=== PATIENT | female | born 1950 | race Caucasian/White ===

== ENCOUNTER 2023-12-15 05:05 | Observation (INO) ==
--- NOTE | 2023-11-10 11:35 | PAT Medication Instructions ---
Medication Instructions Date of Service November 10, 2023 Home Medications carvedilol 12.5 mg tablet 12.5 mg PO BID cholecalciferol (vitamin D3) 25 mcg (1,000 unit) capsule (Vitamin D3) 25 mcg PO QAM diclofenac sodium 1 % topical gel (Voltaren) 2 g topical BID PRN Pain fish oil-dha-epa 1,200 mg-144 mg-216 mg capsule 1 cap PO TID hydralazine 25 mg tablet 25 mg PO TID levothyroxine 100 mcg tablet 100 mcg PO QAM losartan 100 mg-hydrochlorothiazide 25 mg tablet 1 tab PO QAM acetaminophen 650 mg tablet,extended release 1,300 mg PO Q12H atorvastatin 80 mg tablet 80 mg PO HS calcium carbonate 600 mg calcium (1,500 mg) tablet 600 mg PO BID dexlansoprazole 60 mg capsule,biphase delayed release (Dexilant) 60 mg PO BID docusate sodium 100 mg capsule (Stool Softener) 100 mg PO BID linagliptin 5 mg tablet (Tradjenta) 5 mg PO QAM sucralfate 1 gram tablet (Carafate) 1 g PO TIDM turmeric root extract 500 mg capsule 500 mg PO QDL ASK your surgeon for instructions diclofenac sodium 1 % topical gel (Voltaren) 2 g topical BID PRN Pain STOP taking 2 weeks before surgery fish oil-dha-epa 1,200 mg-144 mg-216 mg capsule 1 cap PO TID turmeric root extract 500 mg capsule 500 mg PO QDL DO NOT take the morning of surgery cholecalciferol (vitamin D3) 25 mcg (1,000 unit) capsule (Vitamin D3) 25 mcg PO QAM losartan 100 mg-hydrochlorothiazide 25 mg tablet 1 tab PO QAM calcium carbonate 600 mg calcium (1,500 mg) tablet 600 mg PO BID docusate sodium 100 mg capsule (Stool Softener) 100 mg PO BID linagliptin 5 mg tablet (Tradjenta) 5 mg PO QAM sucralfate 1 gram tablet (Carafate) 1 g PO TIDM Take morning of surgery With a small sip of water, OTHERWISE NOTHING TO EAT OR DRINK AFTER MIDNIGHT: carvedilol 12.5 mg tablet 12.5 mg PO BID hydralazine 25 mg tablet 25 mg PO TID levothyroxine 100 mcg tablet 100 mcg PO QAM acetaminophen 650 mg tablet,extended release 1,300 mg PO Q12H (if needed) dexlansoprazole 60 mg capsule,biphase delayed release (Dexilant) 60 mg PO BID Take evening before surgery carvedilol 12.5 mg tablet 12.5 mg PO BID hydralazine 25 mg tablet 25 mg PO TID levothyroxine 100 mcg tablet 100 mcg PO QAM acetaminophen 650 mg tablet,extended release 1,300 mg PO Q12H atorvastatin 80 mg tablet 80 mg PO HS calcium carbonate 600 mg calcium (1,500 mg) tablet 600 mg PO BID dexlansoprazole 60 mg capsule,biphase delayed release (Dexilant) 60 mg PO BID docusate sodium 100 mg capsule (Stool Softener) 100 mg PO BID sucralfate 1 gram tablet (Carafate) 1 g PO TIDM Other Notes If you have any questions please call us at [phone] or [phone] or [phone] or [phone]
--- NOTE | 2023-11-15 11:29 | Anesthesiology Consultation ---
Date of Service November 15, 2023 Assessment & Plan (1) Encounter for pre-operative examination: - Check BSG AM DOS - Infectious disease screening: Per assessment on 11/15/23: No known infectious disease contacts or current infectious disease symptoms. No noted recent Covid positive test result. - Outpatient joint assessment: Pt currently scheduled for inpatient pathway. If surgeon requests review for outpatient joint pathway, patient is not recommended candidate for outpatient joint program from anesthesia standpoint. - Patient concerns: Patient concerned regarding perioperative management r/t hx of urinary incontinence/urgency, chronic constipation and anxiety. Questions/concerns answered. Advised to discuss further with anesthesiologist DOS if any additional questions/concerns* Chart Review Chart Review: Acceptable Risk for Surgery and Patient seen in Pre Admission Testing Teaching & Discussion Pre-Anesthesia Teaching/Discussion Notes: Instructed NPO after midnight before surgery,except medications with 15 cc of water. Medication instructions provided according to the PAT guidelines. History Surgery Operation Date: 12/15/23 09:15 Proposed Procedures p Left Total Knee Arthroplasty - Justin You DO Height/Weight Height: 5 ft 7 in Weight: 123.9 kg Allergies Allergy/AdvReac Type Severity Reaction Status Date / Time No Known Allergies Allergy Verified 11/08/23 09:37 Medications Home Medications Medication Instructions Recorded Confirmed Last Taken carvedilol 12.5 mg tablet 12.5 mg PO BID 09/12/20 11/08/23 09/26/20 06:30 cholecalciferol (vitamin D3) 25 25 mcg PO QAM 09/12/20 11/08/23 09/25/20 08:00 mcg (1,000 unit) capsule (Vitamin D3) diclofenac sodium 1 % topical gel 2 g topical BID PRN Pain 09/12/20 11/08/23 Unknown (Voltaren) fish oil-dha-epa 1,200 mg-144 1 cap PO TID 09/12/20 11/08/23 09/25/20 20:00 mg-216 mg capsule hydralazine 25 mg tablet 25 mg PO TID 09/12/20 11/08/23 09/26/20 06:30 levothyroxine 100 mcg tablet 100 mcg PO QAM 09/12/20 11/08/23 09/26/20 06:30 losartan 100 1 tab PO QAM 09/12/20 11/08/23 09/25/20 08:00 mg-hydrochlorothiazide 25 mg tablet acetaminophen 650 mg 1,300 mg PO Q12H 11/08/23 11/08/23 Unknown tablet,extended release atorvastatin 80 mg tablet 80 mg PO HS 11/08/23 11/08/23 Unknown calcium carbonate 600 mg calcium 600 mg PO BID 11/08/23 11/08/23 Unknown (1,500 mg) tablet dexlansoprazole 60 mg 60 mg PO BID 11/08/23 11/08/23 Unknown capsule,biphase delayed release (Dexilant) docusate sodium 100 mg capsule 100 mg PO BID 11/08/23 11/08/23 Unknown (Stool Softener) linagliptin 5 mg tablet (Tradjenta) 5 mg PO QAM 11/08/23 11/08/23 Unknown sucralfate 1 gram tablet (Carafate) 1 g PO TIDM 11/08/23 11/08/23 Unknown turmeric root extract 500 mg 500 mg PO QDL 11/08/23 11/08/23 Unknown capsule duloxetine 90 mg PO DAILY 11/15/23 11/15/23 Unknown hydroxyzine HCl 1 tab PO TID PRN Anxiety 11/15/23 11/15/23 Unknown metformin 500 mg tablet 500 mg PO BID 11/15/23 11/15/23 Unknown tramadol 1 tab PO DAILY PRN Pain 11/15/23 11/15/23 Unknown Past Medical History Medical History Urine incontinence Occasional urinary incontinence/severe urgency- wears depends at night History of COVID-Nov/Dec 2022- mild cold symptoms > resolved Diabetes mellitus, type 2 NIDDM Morbid obesity Hypertriglyceridemia Fatty liver Chronic back pain Lumbar Osteoarthritis Gout Hiatal hernia Barretts esophagus GERD (gastroesophageal reflux disease) Hypothyroidism Acquired lymphedema LLE Hypertension Exercise / Class Metabolic Activity III < 4 Walking/Shop/Light housework Past Family History Family History Other No family history of adverse response to anesthesia Past Surgical History Surgical History History of dilatation and curettage S/P arthroscopy of left shoulder S/P lumbar laminectomy 2020 ([facility]) H/O neck surgery "Benign mass" removal History of esophagogastroduodenoscopy (EGD) History of colonoscopy History of cholecystectomy Past Anesthesia History No Hx of Anesthesia Complications and No Family Hx of Anesthesia Complications History of PONV No Hx of PONV and No Hx of Motion Sickness Social History Smoking Status: Never smoker Do You Dip or Chew Tobacco: No Hx Alcohol Use: No Hx Substance Use: No Review of Systems Patient denies chest pain, shortness of breath, fever, chills, cough, wheezing, palpitations. Physical Exam Vital Signs VITALS BP 144/74 P 69 TEMP 98.2 SP02 95%RA RESP 16 PHYSICAL Full cervical extension range of motion. Full TMJ range of motion. TMD 3 finger breaths Mallampati Score 3 Dentition: missing teeth (sides) Lungs: clear throughout to auscultation Cardiac: regular rate and rhythm, no murmurs noted Spine: normal Carotid arteries: negative bruit Extremities: non-pitting LE edema Lab Results Anesthesia Preop Results Results Anesthesia Widget: WBC 8.33 K/ul (4.8-10.8) 11/15/23 Hgb 13.3 g/dl (12.0-16.0) 11/15/23 Hct 39.6 % (37.0-47.0) 11/15/23 Plt 221 K/uL (130-400) 11/15/23 Na 140 mmol/L (136-145) 11/15/23 K 4.5 mmol/L (3.5-5.1) 11/15/23 Cl 102 mmol/L (98-107) 11/15/23 CO2 30 mmol/L (21-32) 11/15/23 BUN 17 mg/dl (6-23) 11/15/23 Creat 0.56 mg/dl (0.6-1.2) L 11/15/23 Glucose Level 113 mg/dl (70-99(Fasting)) H 11/15/23 PT 10.9 Seconds (9.0-12.0) 11/15/23 PTT 28 Seconds (21-31) 11/15/23 INR 1.0 (0.9-1.1) 11/15/23 HA1c 6.9 % (4.5-5.6) H 11/15/23 Urine Color Yellow 11/15/23 Urine Appearance Clear (Clear) 11/15/23 Urine pH 7.5 (4.5-7.5) 11/15/23 Urine Specific [place] 1.022 (1.000-1.030) 11/15/23 Urine Protein Negative (Negative) 11/15/23 Urine Glucose (UA) Negative (Negative) 11/15/23 Urine Ketones Negative (Negative) 11/15/23 Urine Blood Negative (Negative) 11/15/23 Urine Nitrite Negative (Negative) 11/15/23 Urine Bilirubin Negative (Negative) 11/15/23 Urine Urobilinogen Negative (Negative) 11/15/23 Urine Leukocyte Esterase Trace (Negative) H 11/15/23 Urine WBC (Auto) 1-5 /hpf (0-5) 11/15/23 Urine RBC (Auto) 0-4 /hpf (0-4) 11/15/23 Urine Hyaline Casts (Auto) 1-5 /lpf (0-5) 11/15/23 Urine Epithelial Cells (Auto) >30 /lpf (0-5) H 11/15/23 Urine Bacteria (Auto) Negative (Negative) 11/15/23 Blood Type O Positive 11/15/23 Antibody Screen NEGATIVE 11/15/23 Testing Electrocardiogram Date: 11/15/23 NSR at 69bpm. "Normal ECG"
--- NOTE | 2023-11-18 08:35 | History & Physical Report ---
Date of Service November 18, 2023 date of surgery: 12/15/23 Procedure: Left Total Knee Arthroplasty Surgeon: Justin You, DO Assessment & Plan (1) Arthritis of knee, left: Plan: Risk and benefits of procedure discussed, she wishes to proceed with left total knee arthroplasty. Plan be overnight stay at the hospital with discharge home with home health physical therapy. Will place on aspirin 81 mg twice a day for 1 month postop DVT prophylaxis. Follow-up in the office 2 weeks after surgery or sooner if she is having any issues. Otherwise she has no other questions or concerns The risks and benefits have been discussed including, but not limited to, risk of infection, nerve injury, stiffness, loss of motion, failure to improve, etc. Reasonable outcomes and options of treatment were discussed. An explanation of appropriate alternatives to the procedure that may be advantageous were discussed and their risks and benefits, as well as the risks and benefits of not proceeding with treatment. I offered to answer any additional inquiries donato rning the treatment involved. All the patient's questions were answered. The patient is agreeable, understanding of the treatment plan and alternatives, and wishes to proceed with the treatment plan. History of Present Illness Chief Complaint: left knee pain Primary Care Provider: Horacio Lu Jeffrey Bello is a pleasant 73-year-old female who presented for preop evaluation prior to upcoming left total knee arthroplasty. She is longstanding history of left knee pain which gradually worsened and is now affecting her daily activities including walking standing using stairs. She rates her current pain as a 6 out of 10, she tried oral anti-inflammatories and Tylenol with no improvement. She is also previously undergone viscosupplementation as well as corticosteroid injection with no significant improvement. X-rays were reviewed which show advanced generative changes to her left knee, at discussing further care she wishes to proceed with surgical intervention Allergies Allergy/AdvReac Type Severity Reaction Status Date / Time No Known Allergies Allergy Verified 11/08/23 09:37 Home Medications Medication Instructions Recorded Confirmed Type carvedilol 12.5 mg tablet 12.5 mg PO BID 09/12/20 11/08/23 History cholecalciferol (vitamin D3) 25 25 mcg PO QAM 09/12/20 11/08/23 History mcg (1,000 unit) capsule (Vitamin D3) diclofenac sodium 1 % topical gel 2 g topical BID PRN Pain 09/12/20 11/08/23 History (Voltaren) fish oil-dha-epa 1,200 mg-144 1 cap PO TID 09/12/20 11/08/23 History mg-216 mg capsule hydralazine 25 mg tablet 25 mg PO TID 09/12/20 11/08/23 History levothyroxine 100 mcg tablet 100 mcg PO QAM 09/12/20 11/08/23 History losartan 100 1 tab PO QAM 09/12/20 11/08/23 History mg-hydrochlorothiazide 25 mg tablet acetaminophen 650 mg 1,300 mg PO Q12H 11/08/23 11/08/23 History tablet,extended release atorvastatin 80 mg tablet 80 mg PO HS 11/08/23 11/08/23 History calcium carbonate 600 mg calcium 600 mg PO BID 11/08/23 11/08/23 History (1,500 mg) tablet dexlansoprazole 60 mg 60 mg PO BID 11/08/23 11/08/23 History capsule,biphase delayed release (Dexilant) docusate sodium 100 mg capsule 100 mg PO BID 11/08/23 11/08/23 History (Stool Softener) linagliptin 5 mg tablet (Tradjenta) 5 mg PO QAM 11/08/23 11/08/23 History sucralfate 1 gram tablet (Carafate) 1 g PO TIDM 11/08/23 11/08/23 History turmeric root extract 500 mg 500 mg PO QDL 11/08/23 11/08/23 History capsule duloxetine 90 mg PO DAILY 11/15/23 11/15/23 History hydroxyzine HCl 1 tab PO TID PRN Anxiety 11/15/23 11/15/23 History metformin 500 mg tablet 500 mg PO BID 11/15/23 11/15/23 History tramadol 1 tab PO DAILY PRN Pain 11/15/23 11/15/23 History Past Med/Surg History Medical History Urine incontinence Occasional urinary incontinence/severe urgency- wears depends at night History of COVID-Nov/Dec 2022- mild cold symptoms > resolved Diabetes mellitus, type 2 NIDDM Morbid obesity Hypertriglyceridemia Fatty liver Chronic back pain Lumbar Osteoarthritis Gout Hiatal hernia Barretts esophagus GERD (gastroesophageal reflux disease) Hypothyroidism Acquired lymphedema LLE Hypertension Surgical History History of dilatation and curettage S/P arthroscopy of left shoulder S/P lumbar laminectomy 2020 ([facility]) H/O neck surgery "Benign mass" removal History of esophagogastroduodenoscopy (EGD) History of colonoscopy History of cholecystectomy Family History Other No family history of adverse response to anesthesia Social History Smoking Status: Never smoker Second Hand Exposure: No; Do You Dip or Chew Tobacco: No; Hx Alcohol Use: No Hx Substance Use: No Preferred Language: [place] Communication Ability: Effective Tool Mechanic Required: No Beliefs That Will Affect Care: None Current Living Situation: Spouse Feels Safe at Home: Yes Assistive Devices: Cane and Glasses Review of Systems Review of Systems: All systems reviewed & are unremarkable except as noted in HPI & below Constitutional: no fever, no chills and no sweats Respiratory: no cough and no dyspnea Cardiovascular: no chest pain, no dyspnea and no orthopnea Gastrointestinal: no abdominal pain, no nausea and no vomiting Musculoskeletal: as per Subjective / HPI Physical Exam Physical Exam: HT: 5ft 7in WT: 123.9kg Constitutional: WD/WN, vitals as above no acute distress Respiratory: normal respiratory effort, lungs clear to auscultation no respiratory distress, no labored breathing and does not use accessory muscles Cardiovascular: RRR, no murmur, no edema Gastrointestinal (Abdomen): normal bowel sounds, soft, nontender, no hepatosplenomegaly Musculoskeletal: Knee: + knee abnormal to inspection (LEFT KNEE), + effusion (+1 effusion), + limited ROM of knee (ROM 0/3/110), + knee ROM with crepitation, + joint line tenderness (medial joint line) and + Navdeep's sign positive; no deformity, no skin erythema, no ecchymosis, no valgus laxity, no varus laxity, anterior drawer test negative, Ana Luisa's sign negative and pivot shift test negative Results & Data Results & Data Diagnostic Findings Left Knee X-ray: left knee series confirm advanced degenerative changes to the left knee, greatest medial compartments and patellofemoral joint, showing joint space narrowing, osteophyte formation and subchondral sclerosis. no acute bony pathology noted.
[2023-12-15] MEDS ORDERED: TRANEXAMIC ACID 1,000 MG **IV Pre-op IV SCH (06:00)
[2023-12-15] MEDS ORDERED: ROPIV 0.5% 246mg, Ketorolac 30mg, EPINEPHrine 0.5mg in NSS INFIL SCH (06:00)
[2023-12-15] MEDS ORDERED: LR 60ML/HR IV SCH (06:00)
[2023-12-15] MEDS ORDERED: ACETAMINOPHEN 500 MG TAB PO SCH (06:00)
[2023-12-15] MEDS ORDERED: METOCLOPRAMIDE HCL 10 MG TABLET PO SCH (06:00)
[2023-12-15] MEDS ORDERED: GABAPENTIN 300 MG CAP PO SCH (06:00)
[2023-12-15] MEDS ORDERED: CeleBREX 200 MG CAP PO SCH (06:00)
[2023-12-15] MEDS ORDERED: FAMOTIDINE 20 MG TAB PO SCH (06:00)
[2023-12-15] MEDS ORDERED: TRANEXAMIC ACID 1,000 MG **IV Intra-op IV SCH (06:00)
[2023-12-15] MEDS ORDERED: dexAMETHasone**PF** 10 MG/ML VIAL IV SCH (06:00)
[2023-12-15] MEDS ORDERED: BUPIVACAINE 0.5 % 5 MG/1 ML PF 10ML VIAL ONE (06:16)
[2023-12-15] MEDS ORDERED: ROPIVACAINE 0.5% 5 MG/ML 30 ML VIAL ONE (06:16)
[2023-12-15] MEDS ORDERED: PROPOFOL IV EMULSION 10 MG/ML 20 ML VIAL IV ONE (06:35)
[2023-12-15] MEDS ORDERED: fentaNYL citrate PF 100 MCG/2 ML VIAL ONE ×2 (06:35→07:43)
[2023-12-15] MEDS ORDERED: LIDOCAINE 2% 2 ML VIAL/AMP(20MG/ML) INFIL ONE (06:35)
[2023-12-15] MEDS ORDERED: DEXAMETHASONE SOD INJ 4 MG/ML VIAL ONE (06:35)
[2023-12-15] MEDS ORDERED: MIDAZOLAM HCL 1 MG/ML 2ML VIAL ONE (06:35)
[2023-12-15] MEDS ORDERED: ONDANSETRON INJ 2 MG/ML 2 ML VIAL ONE (06:35)
[2023-12-15] MEDS ORDERED: ATROPINE SULFATE 0.1 MG/ML 10ML SYR IV PRN (06:42)
[2023-12-15] MEDS ORDERED: ONDANSETRON INJ 2 MG/ML 2 ML VIAL IV PRN ×2 (06:42→10:49)
[2023-12-15] MEDS ORDERED: ePHEDrine sulfate 50 MG/ML AMP IV PRN (06:42)
[2023-12-15] MEDS ORDERED: ORTHO JOINT ANESTHETIC ONE (07:05)
--- NOTE | 2023-12-15 07:15 | History & Physical Bridge Note ---
Date of Service December 15, 2023 History & Physical Bridge Note I have examined the patient, reviewed the History & Physical and in the interval since the performance of the History & Physical I have noted the following changes of clinical significance: no changes noted
--- NOTE | 2023-12-15 08:41 | Operative Report ---
Post Operative Report Pre & Post Diagnosis Operation Date: 12/15/23 07:15 Pre-Op Diagnosis: Left Knee Osteoarthritis Post-Op Diagnosis: Left Knee Osteoarthritis I identified the patient and participated in the time-out.: Yes Procedure Operation Date: 12/15/23 07:15 Actual Procedures p Left Total Knee Arthroplasty(Left)Utilizing [employer] journey 2 patient- matched total knee arthroplasty size femur 7 tibia 5 poly 11 patella 32 indio - Justin You DO Surgeon Justin You DO Mammography Tech Jose WATSON Estimated Blood Loss 5 Findings Consistent with Post-Op Diagnosis Patient presents with severe end-stage tricompartmental degenerative joint disease 10 degree flexion contracture varus alignment subchondral sclerosis marginal osteophytes subchondral eburnated [id number] with marginal with moderate to large effusion Specimens Bone and cartilage Drains Medium bore Hemovac Anesthesia Type MAC Spinal Regional Complications none Disposition Accompanied Patient To Recovery: No Disposition: Recovery Room Indications Patient presents with severe end-stage tricompartmental DJD flexion contracture with the above intraoperative note findings noted she is failed attempted corticosteroid injection viscosupplementation relative rest activity modification she presents for total knee arthroplasty Description of Procedure After proper prepping and draping of the left lower extremity anterior midline incision was made over the region of the extensor extensor mechanism after m eticulous hemostasis was obtained and maintained in subcutaneous tissues a medial parapatellar incision was made The patella was subluxed lateralward the medial lateral gutter were cleaned from any hypertrophic synovitis and scar tissue of the distal femoral block was placed and the distal femoral osteotomy cut was made subsequently the chamfers anterior and posterior osteotomy cuts were made utilizing the 4-in-1 block the tibia was subsequently subluxed anteriorward medial and ateral meniscal remnants were excised in their entirety remnants of the anterior and posterior cruciate ligaments were excised in their entirety excellent exposure of the proximal tibia was obtained the tibial osteotomy guide was placed on the proximal tibial osteotomy cut was made once again the knee was irrigated with copious amounts of sterile saline solution the patella was subsequently everted lateralward thickened scar tissue around the patella was removed the patella was subsequently cut utilizing a freehand technique and was drilled prepared for final preparation and placement of patella socially flexion-extension gaps were checked and the equal and symmetric trials were placed to the appropriate femoral and tibial trials with poly-spacer being placed for equal flexion and extension gaps and full range of motion including extension to 0 and flexion to 140 the trial components after having been taken to recovery range of motion was subsequently removed meticulous hemostasis was obtained and maintained subsequently a knee block injection of joint cocktail including ropivacaine 0.5% 150 mg. Bupivacaine 0.5% epinephrine 1-200,030 mL's toradol 30 mg dexamethasone 4 mg ketamine 10 mg clonidine 100 micrograms normal saline solution 30 mg was infiltrated into the soft tissues of the posterior knee medial lateral gutters and periosteal synovium special attention was paid to protect neurovascular structures at all times subsequently trial components having been removed the knee was irrigated with sterile saline solution. debris was removed the proximal tibia was subsequently prepared and was made ready for the placement of the tibial component tibial component was also cemented and tamped into position the femoral component was subsequently placed and cemented in the position the patellar component was subsequently cemented in position because hemostasis once again obtained and maintained wound having been thoroughly irrigated with debridement and debridement lavage was performed as well as a medial parapatellar incision closed with #1 Vicryl in interrupted fashion subcutaneous was closed with #2 Vicryl skin was closed with skin clips. PA-C was necessary for prepping and drapping as well as wound closure of deep fascia Sub cutaneous tissue and skin and was necessary for the case. A sterile compressive dressing was placed patient was taken to recovery in stable condition of report dictated by Avelino I attest to the content of the Intraoperative Record and any orders documented therein. Any exceptions are noted below.Due to the complex nature of the procedure, the entire surgery was performed with the operational assistance of WALTER Solo. The inventory assistant, under direct supervision, was involved in the actual performance of all aspects of the surgical procedure including hemostasis, tissue retraction and incision, instrument management, patient posi tioning, and wound closure. I attest to the content of the Intraoperative Record and any orders documented therein. Any exceptions are noted below.
--- NOTE | 2023-12-15 09:43 | XRay Report ---
XR knee LT 1 or 2V routine HISTORY: 73 years-old Female Surgical Post Op left knee arthroplasty COMPARISON: None TECHNIQUE: 2 views of the left knee FINDINGS: Total joint arthroplasty with patellar resurfacing. Expected postoperative soft tissue swelling with deep tissue air. Surgical drainage catheter. No acute fracture, dislocation or unexpected opaque fore ign body identified. IMPRESSION: Total joint arthroplasty with expected postoperative changes. ACT 112: Negative or not required by law. The above report was generated using voice recognition software. It may contain grammatical, syntax o r spelling errors. Electronically signed by: Ridge Gordon M.D. 12/15/2023 9:42 AM
--- NOTE | 2023-12-15 09:50 | Anesthesiology Progress Note ---
Date of Service December 15, 2023 Anesthesia Post Procedure Vital Signs Vital Signs: Temp Pulse Pulse Resp BP Pulse Ox O2 Del Method 12/15/23 09:35 78 18 156/75 H 98 Oxymask 12/15/23 09:25 80 17 143/74 H 97 Oxymask 12/15/23 09:17 36.8 C 81 16 162/81 H 95 Oxymask 12/15/23 05:55 36.4 C L 71 18 172/73 H 97 Room Air O2 Flow Rate 12/15/23 09:35 5 12/15/23 09:25 5 12/15/23 09:17 5 12/15/23 05:55 Transfer of Care Handoff Completed per policy Notes Mental Status: alert / awake / arousable Patient Amnestic to Procedure: Yes Nausea / Vomiting: adequately controlled Pain: adequately controlled Airway Patency, RR, SpO2: stable & adequate BP & HR: stable & adequate Hydration State: stable & adequate Neuraxial Anesthesia: see Notes below Anesthetic Complications: no major complications apparent and Pt Satisfied with anesthetic care Notes: pt s/p laminectomy with spinal placed with csf free flowing. motor 4/5 and sensory 3/5 after appropriate time interval from placement. LMA placed prior to incision d/t inadequate surgical anesthesia.
[2023-12-15] MEDS: fentaNYL citrate PF 100 MCG/2 ML VIAL IV PRN ×2 (10:10→10:19)
[2023-12-15] MEDS ORDERED: PHARMACY GLYCEMIC MGMT CONSULT PRN (10:49)
[2023-12-15] MEDS ORDERED: METOCLOPRAMIDE HCL INJ 5 MG/ML 2 ML VIAL IV PRN (10:49)
[2023-12-15] MEDS ORDERED: NALOXONE HCL 0.4 MG/1 ML VIAL/CARP IV PRN (10:49)
[2023-12-15] MEDS ORDERED: bisacodyL 10 MG SUPP PR PRN (10:49)
[2023-12-15] MEDS ORDERED: MAGNESIUM HYDROXIDE SUSP 30 ML UDC PO PRN (10:49)
[2023-12-15] MEDS ORDERED: diphenhydrAMINE Capsule 25 MG CAP PO PRN (10:49)
[2023-12-15] MEDS ORDERED: HYDROmorphone INJ 1 MG/ML SYRINGE IV PRN (10:49)
[2023-12-15] MEDS ORDERED: hydrOXYzine HCl 10 MG TAB PO PRN (10:56)
[2023-12-15] MEDS ORDERED: DEXTROSE 50% 50 ML SYRINGE IV PRN (11:15)
[2023-12-15] MEDS ORDERED: GLUCOSE 10 TAB/TUBE PO PRN (11:15)
[2023-12-15] MEDS ORDERED: GLUCAGON FOR INJ 1 MG VIAL IM PRN (11:15)
[2023-12-15] MEDS ORDERED: GLUCOSE 40% GEL 15 GM TUBE PO PRN (11:15)
[2023-12-15] MEDS ORDERED: CARBOHYDRATES FOR HYPOGLYCEMIA PO PRN (11:15)
[2023-12-15] MEDS ORDERED: LANTUS PER UNIT CHARGE SC SCH (11:30)
--- NOTE | 2023-12-15 11:52 | Pharmacy Report ---
Pharmacy Glycemic Short Note 2 - Date of Service December 15, 2023 - Glycemic Short BSG Results (Last 24 hours): 12/15/23 12/15/23 05:38 09:20 POC Glucose 154 H 173 H OUTPATIENT ANTIDIABETIC REGIMEN: * Linagliptin 5 mg PO daily * Metformin 1 gm PO BID HbA1c = 6.9% on 11/15/23 ASSESSMENT: * 73 y/o F admitted for L TKA today. History of morbid obesity with Type 2 diabetes well controlled only on oral meds at home. * Will hold oral anti-diabetic meds for now and utilize basal/bolus insulins for glycemic control while admitted. * Patient received IV Dexamethasone 8 mg in OR today AM. Expect this to elevate BSGs later today. * Basal dose of 15 units (stress of 2 using adjusted body wt) ordered with lunch today to try to offset hyperglycemia later. * Novolog ordered with lunch, parameters based on stress of 2. PLAN FOR INPATIENT GLYCEMIC CONTROL: * Hold outpatient oral diabetes medications * Basal insulin * Lantus 15 units SQ x1 with lunch * Bolus insulin * NovoLog per scale ACHS or Q6hrs while NPO * Goal Range: Low 110 mg/dL - High 140 mg/dL * Correction Factor: 25 mg/dL/unit * Nutritional / Prandial insulin per carb ratio of 1 unit per 8 grams CHO consumed
[2023-12-15] MEDS: oxyCODONE HCL IR 5 MG TAB (IMMEDIATE RELEASE) PO PRN (11:55)
[2023-12-15] MEDS: SODIUM CHLORIDE 0.9% 1,000 ML IV SCH (12:01)
[2023-12-15] MEDS: INSULIN ASPART PER UNIT CHARGE SC SCH ×3 (12:02→20:14)
[2023-12-15] MEDS: ACETAMINOPHEN 500 MG TAB PO SCH ×2 (14:00→22:28)
[2023-12-15] MEDS: hydrALAZINE HCL 25 MG TAB PO SCH ×2 (14:01→20:08)
[2023-12-15] MEDS: ceFAZolin 2000MG 2,000 MG/15 ML SYR IV SCH ×2 (15:09→22:43)
[2023-12-15] MEDS: KETOROLAC TROMETHAMINE 15 MG/ML VIAL IV SCH ×2 (17:48→22:44)
[2023-12-15] MEDS: ASPIRIN 81 MG ECTAB PO SCH (20:08)
[2023-12-15] MEDS: DOCUSATE SODIUM 100 MG CAP PO SCH (20:09)
[2023-12-15] MEDS: carvediloL 12.5 MG TAB PO SCH (20:09)
[2023-12-15] MEDS: PANTOprazole 40 MG TAB PO SCH (20:10)
[2023-12-15] MEDS: CALCIUM CARBONATE 1250MG TAB PO SCH (20:11)
[2023-12-15] MEDS ORDERED: SENNA 8.6 MG TAB PO SCH (21:00)
[2023-12-15] MEDS ORDERED: ATORVASTATIN 40 MG TAB PO SCH (21:00)
[2023-12-16] MEDS: SODIUM CHLORIDE 0.9% 1,000 ML IV SCH (02:35)
[2023-12-16] MEDS: KETOROLAC TROMETHAMINE 15 MG/ML VIAL IV SCH (05:29)
[2023-12-16] MEDS: ACETAMINOPHEN 500 MG TAB PO SCH (05:29)
[2023-12-16 06:27] LABS: Hematocrit (blood only) 32.8 % (37.0-47.0); Hemoglobin 10.9 g/dl (12.0-16.0); Mean Corpuscular Hemoglobin 28.9 pg (25.0-34.0); Mean Corpuscular Hgb Conc 33.2 g/dL (32.0-36.0); Mean Platelet Volume 10.8 fL (9.4-12.4); Platelet Count 181 K/uL (130-400); RDW Coefficient of Variation 13.8 % (11.5-14.5); Red Blood Count 3.77 M/uL (4.20-5.40); White Blood Count 11.95 K/ul (4.8-10.8)
[2023-12-16] MEDS ORDERED: LEVOTHYROXINE SODIUM 100 MCG TABLET PO SCH (06:30)
[2023-12-16 06:50] LABS: BUN Creatinine Ratio 36.9 (10-20); Calcium 9.1 mg/dl (8.6-10.3); Creatinine Clr Calc Pharmacy 104.8 ml/min; Est GFR (African American) 102.1 ml/min; Est GFR (Non-African American) 88.1 ml/min
--- NOTE | 2023-12-16 07:06 | Orthopedic Progress Note ---
Date of Service December 16, 2023 Assessment & Plan (1) History of total left knee replacement: Plan: POD #1 s/p left TKA pt/ot dvt proph with ARCADIO/SCD/ASA plan for d/c home with HHPT Admission and Anticipated Discharge Date Admission Date: December 15, 2023 Subjective POD #1 s/p Left TKA Review of Systems Constitutional: no fever, no chills and no sweats Respiratory: no cough and no dyspnea Cardiovascular: no chest pain and no dyspnea Gastrointestinal: no abdominal pain, no nausea and no vomiting Physical Exam Physical Exam: Vital Signs Temp 37.0 C 12/16/23 03:57 Pulse 75 12/16/23 03:57 Resp 18 12/16/23 03:57 BP 123/63 12/16/23 03:57 Pulse Ox 96 12/16/23 03:57 O2 Del Method Room Air 12/16/23 03:57 O2 Flow Rate 2 12/15/23 11:51 Intake & Output 12/15/23 12/16/23 12/16/23 18:59 06:59 18:59 Intake Total 1300 / 2300 1000 / 2300 Output Total 395 / 970 575 / 970 Balance 905 / 1330 425 / 1330 Intake: IV 100 / 1100 1000 / 1100 Lactated Ringe r's 1,000 ml @ 60 0 / 0 mls/hr IV .Q16 H40M [facility] Rx#: [id number] Sodium Chlorid e 0.9% 1,000 ml @ 1000 / 1000 100 mls/hr IV .Q10H [facility] Rx#: [id number] Tranexamic Aci d / 0.7% NaCl 1, 100 / 100 000 mg In 100 ml @ 600 mls/hr IV TODAY@0600 [facility] Rx#:[id number] IV Perioperative 1200 / 1200 Output: Urine 300 / 850 550 / 850 Estimated Blood Loss 5 / 5 Drain Output 90 / 115 25 / 115 Left Knee 90 / 115 25 / 115 Musculoskeletal: Left Leg: NVDI, calf SNT, negative jessica sign. DP palpable, able to wiggle toes/ankle movement without difficulty. dressing clean dry and intact. Results & Data Vital Signs (Past 12 Hours) Vital Signs Temp Pulse Pulse Resp BP BP Pulse Ox 12/16/23 03:57 37.0 C 75 18 123/63 96 01/17/24 23:05 36.3 C L 79 18 169/79 H 94 12/15/23 20:06 80 161/76 H O2 Del Method 12/16/23 03:57 Room Air 12/15/23 23:05 Room Air 12/15/23 20:06 Laboratory Results Laboratory Results WBC 11.95 K/ul (4.8-10.8) H 12/16/23 06:02 RBC 3.77 M/uL (4.20-5.40) L 12/16/23 06:02 Hgb 10.9 g/dl (12.0-16.0) L 12/16/23 06:02 Hct 32.8 % (37.0-47.0) L 12/16/23 06:02 MCV 87.0 fL (80.0-100.0) 12/16/23 06:02 MCH 28.9 pg (25.0-34.0) 12/16/23 06:02 MCHC 33.2 g/dL (32.0-36.0) 12/16/23 06:02 RDW Std Deviation 43.0 fL (36.4-46.3) 12/16/23 06:02 RDW Coeff of Lizzie 13.8 % (11.5-14.5) 12/16/23 06:02 Plt Count 181 K/uL (130-400) 12/16/23 06:02 MPV 10.8 fL (9.4-12.4) 12/16/23 06:02 Sodium 139 mmol/L (136-145) 12/16/23 06:02 Potassium 4.0 mmol/L (3.5-5.1) 12/16/23 06:02 Chloride 106 mmol/L (98-107) 12/16/23 06:02 Carbon Dioxide 25 mmol/L (21-32) 12/16/23 06:02 Anion Gap 8 (3-11) 12/16/23 06:02 BUN 24 mg/dl (6-23) H 12/16/23 06:02 Creatinine 0.65 mg/dl (0.6-1.2) 12/16/23 06:02 Est Cr Clr Drug Dosing 104.8 ml/min 12/16/23 06:02 Est GFR ( Amer) 102.1 ml/min 01/18/24 06:02 Est GFR (Non-Af Amer) 88.1 ml/min 12/16/23 06:02 BUN/Creatinine Ratio 36.9 (10-20) H 12/16/23 06:02 Glucose 151 mg/dl (70-99(Fasting)) H 12/16/23 06:02 POC Glucose 160 mg/dl (70-99) H 12/15/23 20:07 Calcium 9.1 mg/dl (8.6-10.3) 12/16/23 06:02 Impressions Knee X-Ray 12/15/23 09:22 XR knee LT 1 or 2V routine HISTORY: 73 years-old Female Surgical Post Op left knee arthroplasty COMPARISON: None TECHNIQUE: 2 views of the left knee FINDINGS: Total joint arthroplasty with patellar resurfacing. Expected postoperative soft tissue swelling with deep tissue air. Surgical drainage catheter. No acute fracture, dislocation or unexpected opaque foreign body identified. IMPRESSION: Total joint arthroplasty with expected postoperative changes. ACT 112: Negative or not required by law. The above report was generated using voice recognition software. It may contain grammatical, syntax or spelling errors. Electronically signed by: Ridge Gordon M.D. 12/15/2023 9:42 AM
--- NOTE | 2023-12-16 07:10 | Discharge Summary ---
Date of Service date of discharge: December 16, 2023 date of admission: 12/15/23 Admission HPI Per Admitting Provider Eugenia is a pleasant 73-year-old female who presented for preop evaluation prior to upcoming left total knee arthroplasty. She is longstanding history of left knee pain which gradually worsened and is now affecting her daily activities including walking standing using stairs. She rates her current pain as a 6 out of 10, she tried oral anti-inflammatories and Tylenol with no improvement. She is also previously undergone viscosupplementation as well as corticosteroid injection with no significant improvement. X-rays were reviewed which show advanced generative changes to her left knee, at discussing further care she wishes to proceed with surgical intervention Principal Diagnosis left knee replacement Discharge Exam Vital Signs Temp 37.0 C 12/16/23 03:57 Pulse 75 12/16/23 03:57 Resp 18 12/16/23 03:57 BP 123/63 12/16/23 03:57 Pulse Ox 96 12/16/23 03:57 O2 Del Method Room Air 12/16/23 03:57 O2 Flow Rate 2 12/15/23 11:51 Intake & Output 12/15/23 12/16/23 12/16/23 18:59 06:59 18:59 Intake Total 1300 / 2300 1000 / 2300 Output Total 395 / 970 575 / 970 Balance 905 / 1330 425 / 1330 Intake: IV 100 / 1100 1000 / 1100 Lactated Ringer's 1,000 ml @ 60 0 / 0 mls/hr IV .[id number] [facility] Rx#: [id number] Sodium Chloride 0.9% 1,000 ml @ 1000 / 1000 100 mls/hr IV .Q10H [facility] Rx#: [id number] Tranexamic Acid / 0.7% NaCl 1, 100 / 100 000 mg In 100 ml @ 600 mls/hr IV TODAY@0600 [facility] Rx#:[id number] IV Perioperative 1200 / 1200 Output: Urine 300 / 850 550 / 850 Estimated Blood Loss 5 / 5 Drain Output 90 / 115 25 / 115 Left Knee 90 / 115 25 / 115 Musculoskeletal left knee: NVDI, calf SNT, negative jessica sign. DP palpable, able to wiggle toes/ankle movement without difficulty. JOHN dressing clean dry and intact. Discharge Data Allergies Allergy/AdvReac Type Severity Reaction Status Date / Time No Known Allergies Allergy Verified 12/15/23 05:47 Procedures Performed Operation Date: 12/15/23 07:15 Actual Procedures p Left Total Knee Arthroplasty(Left) - Justin Nova DO Ordered Studies 12/15/23 05:00 US - OR guided needle placemen Routine Hospital Course (1) History of total left knee replacement: POD #1 s/p left TKA pt/ot dvt proph with ARCADIO/SCD/ASA plan for d/c home with HHPT Total Time Total Time Spent Total Time Spent (In Minutes): 20 Discharge Plan Discharge Items Patient Disposition: Home - Home Health Services Reason For Visit: Left Knee Osteoarthritis Discharge Diagnosis: LEFT TOTAL KNEE REPLACEMENT Activity: Per Instructions section Weightbearing Comment: WBAT WITH WALKER Non-emergency contact: Surgeon Call non-emergency contact if: you have any medication questions, your temperature is above 101, your wound has increased redness and your wound pain has increased Follow-up/Referrals: Rosina Gutierrez CRNP [Primary Care Provider] - Diet: Regular Addtl Attending Provider Instructions: ACTIVITY RECOMMENDATIONS: SELF CARE INSTRUCTIONS AFTER TOTAL KNEE REPLACEMENT A. You may need to continue a physical therapy program after discharge from the hospital. There are several options available to you. Your doctor will assist you in selecting the best one for you. 1. An out-patient facility 2 to 3 times a week for therapy or home therapy. 2. Continue working on all exercises taught to you in the hospital. Your goals should be to increase bending of your knee to 90 degrees and beyond and to fully straighten your knee. B. You may progress at your own pace from walking with a walker or crutches to a cane; then to no assistive devices. C. Make walking a part of your daily routine. Be up as much as comfortable with rest periods throughout the day. Rest with leg elevation is very important. Use the ice wrap frequently for the first 3-4 weeks. D. There are no restrictions on activities. You may ride in a car, shop, participate in compliance associate and all social activities. E. Wear the long elastic stockings (ARCADIO hose) 20 hours a day for 2 weeks after surgery. They can be removed several times a day for laundering and for a bath. F. You may shower, no tub baths until cleared by your doctor. SPECIAL CARE INSTRUCTIONS: VERY IMPORTANT TO READ AND REVIEW A. There are a few signs you need to watch for after you are home. Call [facility] if you notice any of the followin. Increased severe knee pain. Some pain is expected especially when you exercise. 2. Increased swelling in your leg or knee; pain or swelling of the calf muscle in either lower leg. 3. Any fluid drainage from the incision. 4. Shortness of breath or chest pain. B. Please call [facility] at if you have any concerns or questions about your operation or recovery. The doctor or his nurse will return your call promptly. C. You must take antibiotics before dental work, bladder, bowel or other surgery. Your doctor will provide you with a permanent care to carry describing this precaution. IMPORTANT: * REMEMBER TO TAKE ASPIRIN, 81 MG, TWICE DAILY FOR 4 WEEKS UNLESS OTHERWISE DIRECTED. THIS IS YOUR BLOOD THINNER. * HIGH RISK PATIENTS MAY BE PRESCRIBED A STRONGER BLOOD THINNER. THIS WILL BE PROVIDED AT DISCHARGE. * CALL IF INCREASED PAIN, REDNESS, DRAINAGE OR FEVER GREATER THAT 101. * WEAR ARCADIO HOSE 20 HOURS PER DAY FOR 2 WEEKS. DRESSING INSTRUCTIONS * JOHN Dressing- This is a large suction dressing covering your incision. This will help pull any excess drainage from the wound and allow your incision to heal properly. You may shower with this if you can keep the unit outside of the shower. If any bleeding or leakage is noted please call your doctor's office. This will remain on your incision for 7 days and then should be removed. This can be done yourself or by the home nursing staff if applicable. The entire unit is disposable once removed. Once removed, keep incision clean and dry. If redness or drainage is noted, please call your surgeon. ONCE JOHN IS REMOVED, FOLLOW THESE INSTRUCTIONS: DERMABOND Prineo- This is a mesh tape dressing that is covered with glue. It should remain in place until the incision is properly healed, usually 10-14 days. This dressing is designed to naturally slough off. You may trim the excess mesh tape as it peels off. Incision may be briefly wet in a shower. Dry immediately by blotting with a clean, dry towel. Do not bath or swim until instructed by your doctor. Do not scratch, rub, or pick at the dressing. Do not apply any topical ointments or lotions until dressing is completely removed and/or instructed by your doctor. There may be a small piece of suture material at one end of your incision. Do not pull or trim this. If it is bothersome or catching on clothing, you may cover it with a band-aid. IF INCISION IS LEAKING THROUGH DRESSING, CALL THE OFFICE . FOLLOW UP VISIT: If appointment is not already scheduled: Please call [facility] to make a follow-up appointment for 2 weeks after your surgery at . Pending Studies at Discharge: No Stand-Alone Forms: My [facility] Medications and DC Order Prescriptions: New acetaminophen 500 mg tablet 1,000 mg PO Q8 21 Days Qty: 126 0RF aspirin 81 mg tablet,delayed release (DR/EC) 81 mg PO BID 30 Days Qty: 60 0RF celecoxib [Celebrex] 200 mg capsule 200 mg PO BID 30 Days Qty: 60 0RF cefadroxil 500 mg capsule 500 mg PO BID 14 Days Qty: 28 0RF docusate sodium 100 mg Capsule 100 mg PO BID Qty: 20 0RF oxycodone 5 mg tablet 5 - 10 mg PO Q6H PRN (Reason: pain) Qty: 30 0RF Rx Instructions: ongoing therapy, supervising dr evita nova. max 6 tabs in 24 hours Continued carvedilol [Coreg] 12.5 mg Tablet 12.5 mg PO BID hydralazine 25 mg Tablet 25 mg PO TID levothyroxine 100 mcg Tablet 100 mcg PO QAM losartan-hydrochlorothiazide 100-25 mg Tablet 1 tab PO QAM cholecalciferol (vitamin D3) [Vitamin D3] 25 mcg (1,000 unit) Capsule 25 mcg PO QAM atorvastatin 80 mg Tablet 80 mg PO HS sucralfate [Carafate] 1 gram Tablet 1 g PO TIDM calcium carbonate [Caltrate 600] 600 mg calcium (1,500 mg) Tablet 600 mg PO BID docusate sodium [Stool Softener] 100 mg Capsule 100 mg PO BID dexlansoprazole [Dexilant] 60 mg Capsule,Biphase Delayed Releas 60 mg PO BID Tradjenta 5 mg Tablet 5 mg PO QAM metformin 500 mg Tablet 500 mg PO BID duloxetine 90 mg PO DAILY hydroxyzine HCl 1 tab PO TID PRN (Reason: Anxiety) Discontinued fish oil-dha-epa 1,200-144-216 mg Capsule 1 cap PO TID acetaminophen [Tylenol Arthritis] 650 mg Tablet Extended Release 1,300 mg PO Q12H turmeric root extract 500 mg Capsule 500 mg PO QDL tramadol 1 tab PO DAILY PRN (Reason: Pain) Admission Data Admit Date/Time: 12/15/23 09:22 Attending Provider: Justin Nova Admit Provider: Justin Nova Primary Care Provider: Rosina Gutierrez
[2023-12-16] MEDS: hydrALAZINE HCL 25 MG TAB PO SCH (08:00)
[2023-12-16] MEDS: DOCUSATE SODIUM 100 MG CAP PO SCH (08:01)
[2023-12-16] MEDS: ASPIRIN 81 MG ECTAB PO SCH (08:01)
[2023-12-16] MEDS: carvediloL 12.5 MG TAB PO SCH (08:01)
[2023-12-16] MEDS: PANTOprazole 40 MG TAB PO SCH (08:01)
[2023-12-16] MEDS: CALCIUM CARBONATE 1250MG TAB PO SCH (08:02)
[2023-12-16] MEDS: INSULIN ASPART PER UNIT CHARGE SC SCH (08:08)
[2023-12-16] MEDS ORDERED: LOSARTAN/HCTZ 50/12.5MG TAB PO SCH (09:00)
[2023-12-16] MEDS ORDERED: CHOLECALCIFEROL 1,000 UNITS 25 MCG TAB PO SCH (09:00)
[2023-12-16] MEDS ORDERED: MULTIVITAMIN TAB PO SCH (09:00)
[2023-12-16] MEDS: oxyCODONE HCL IR 5 MG TAB (IMMEDIATE RELEASE) PO PRN (10:15)
--- NOTE | 2023-12-16 11:16 | Pharmacy Report ---
Pharmacy Glycemic Short Note 2 - Date of Service December 16, 2023 - Glycemic Short BSG Results (Last 24 hours): 12/15/23 12/15/23 12/15/23 11:50 16:40 20:07 Glucose POC Glucose 199 H 179 H 160 H 12/16/23 12/16/23 06:02 07:37 Glucose 151 H POC Glucose 134 H OUTPATIENT ANTIDIABETIC REGIMEN: * Linagliptin 5 mg PO daily * Metformin 1 gm PO BID HbA1c = 6.9% on 11/15/23 ASSESSMENT: 12/16: * Patient received total 33 units of insulin yesterday; 15 units basal and 18 units bolus. * BSGs yesterday were [phone] mg/dl. Fasting BSG today was 134 mg/dl. * Effects of IV steroid from yesterday should be wearing off. Holding basal insulin today and will resume oral Metformin home dose with dinner. Novolog carb ratio loosened. 12/15/23: * 73 y/o F admitted for L TKA today. History of morbid obesity with Type 2 diabetes well controlled only on oral meds at home. * Will hold oral anti-diabetic meds for now and utilize basal/bolus insulins for glycemic control while admitted. * Patient received IV Dexamethasone 8 mg in OR today AM. Expect this to elevate BSGs later today. * Basal dose of 15 units (stress of 2 using adjusted body wt) ordered with lunch today to try to offset hyperglycemia later. * Novolog ordered with lunch, parameters based on stress of 2. PLAN FOR INPATIENT GLYCEMIC CONTROL: * Resume Metformin 1000 mg PO BID with dinner * Basal insulin * none * Bolus insulin * NovoLog per scale ACHS or Q6hrs while NPO * Goal Range: Low 110 mg/dL - High 140 mg/dL * Correction Factor: 25 mg/dL/unit * Nutritional / Prandial insulin per carb ratio of 1 unit per __ grams CHO consumed
[2023-12-16] MEDS ORDERED: metFORMIN HCL 500 MG TAB PO SCH (17:00)
[2023-12-16] MEDS ORDERED: CeleBREX 200 MG CAP PO SCH (21:00)
== END 2023-12-16 11:46 | disposition home health service (06) ==
LOC: ASU 05:05 → 3E 05:05